=== PATIENT | male | born 2000 | race Caucasian/White ===

== ENCOUNTER 2021-08-06 23:45 | Emergency (ER) | payer SELFPAY ==
[~2021-08-06] VITALS: Ht 185.4 cm; Wt 63.6 kg
[2021-08-07 01:00] VITALS: BP 128/83
== END 2021-08-07 01:03 ==
LOC: ER 23:46
DX: S80.212A Abrasion, left knee, initial encounter (principal); S80.211A Abrasion, right knee, initial encounter; W22.8XXA Striking against or struck by other objects, initial encounter; Y93.89 Activity, other specified; Y92.89 Other specified places as the place of occurrence of the external cause; Y99.8 Other external cause status
CPT/HCPCS: 71045; 93005; 99283